=== PATIENT | male | born 1970 | race Caucasian/White ===

== ENCOUNTER → 2021-07-25 14:46 | Outpatient (BNVA) | payer OTHER, SELFPAY | PROVIDERS: Visit Provider Orthopaedic Surgery | DX: S32.039A Unspecified fracture of third lumbar vertebra, initial encounter for closed fracture (principal); X58.XXXA Exposure to other specified factors, initial encounter | CPT/HCPCS: 72100 ==

== ENCOUNTER 2021-07-25 16:07 | Outpatient (CLI) | payer OTHER, SELFPAY | END 2021-07-25 16:08 | disposition home or self-care (01) | LOC: SPT 16:08 | PROVIDERS: Visit Provider Orthopaedic Surgery | DX: Z46.89 Encounter for fitting and adjustment of other specified devices (principal); S34.103D Unspecified injury to L3 level of lumbar spinal cord, subsequent encounter; X58.XXXD Exposure to other specified factors, subsequent encounter | CPT/HCPCS: 97760; L0456 ==

== ENCOUNTER → 2021-08-10 14:28 | Outpatient (BNVA) | payer OTHER, SELFPAY | PROVIDERS: Visit Provider Orthopaedic Surgery | DX: S32.039D Unspecified fracture of third lumbar vertebra, subsequent encounter for fracture with routine healing (principal); X58.XXXD Exposure to other specified factors, subsequent encounter | CPT/HCPCS: 72100 ==

== ENCOUNTER → 2021-08-29 15:25 | Outpatient (BNVA) | payer OTHER, SELFPAY | PROVIDERS: Visit Provider Orthopaedic Surgery | DX: S32.039D Unspecified fracture of third lumbar vertebra, subsequent encounter for fracture with routine healing (principal); X58.XXXD Exposure to other specified factors, subsequent encounter | CPT/HCPCS: 72100 ==

== ENCOUNTER → 2021-10-12 14:06 | Outpatient (BNVA) | payer OTHER, SELFPAY | PROVIDERS: Visit Provider Orthopaedic Surgery | DX: S32.030A Wedge compression fracture of third lumbar vertebra, initial encounter for closed fracture (principal); X58.XXXA Exposure to other specified factors, initial encounter | CPT/HCPCS: 72100 ==

== ENCOUNTER 2022-06-11 09:13 | Emergency (ER) | payer OTHER, SELFPAY ==
[2022-06-11 09:21] VITALS: BP 158/114; PULSE 117; RESP 17; TEMP 37.2; O2SAT 92; BMI 35.2
--- NOTE | 2022-06-11 09:29 | XR_ITS ---
WS: [id number] Exam: XR chest 1V portable [id number] Date/Time of Exam: 06/11/2022 9:37 AM Reason For Exam: COVID +, cough No previous exams. There is plaque atelectasis in the left base. The lungs are fully expanded and otherwise clear. There is accentuation of the cardiomediastinal silhouette secondary to a portable technique. No pleural ef fusions. Regional bony elements are intact. XR/XR chest 1V portable [id number] IMPRESSION: 1. Left basal plaque atelectasis. No acute process noted.
--- NOTE | 2022-06-11 09:29 | ED_ITS ---
HPI - COVID General: Chief Complaint: COVID symptoms Stated Complaint: Covid+/tested last night at home Time Seen by Provider: 06/11/22 09:29 Source: patient Mode of arrival: ambulatory Limitations: no limitations Triage information: Has fever, cough or shortness of breath . No known COVID + exposure last 14 days History of Present Illness: Patient is a 51-year-old male who presents to ED today stating he tested positive for COVID via home antigen yesterday. He states yesterday morning he began having congestion, cough, body aches, low- grade fevers, and diarrhea. He states today he is no longer having diarrhea or fevers. He reports cough is productive and is worried about possible pneumonia. Patient has no known medical history apart from GERD in which she treats with Nexium. MD complaint: known COVID positive Prior covid testing: yes, results known COVID 19 common symptoms: positive fever(s) (resolved), chills, productive cough, body aches, throat pain, nasal congestion and diarrhea (yesterday; none today); negative dyspnea, headache(s), nausea or vomiting COVID 19 other sytmptoms: negative chest pain or dizziness Onset (ago): day(s) (yesterday) Severity: mild Pertinent comorbid conditions: obesity COVID Results: No Data to Display Review of Systems Const: Reports: fever(s) (resolved), chills and body aches ENMT: Reports: throat pain, nasal discharge, nasal congestion and sinus pain Card: Denies: chest pain, palpitations, irregular heart rhythm, edema, swelling of feet/ankles, lightheadedness, syncope or pre-syncope Resp: Reports: productive cough and chest congestion; Denies: dyspnea or wheezing GI: Reports: diarrhea (yesterday; none today); Denies: abdominal pain, nausea or vomiting Musc: Reports: other (generalized body aches); Denies: neck pain or back pain Skin/Breast: Denies: rash Neuro: Denies: headache(s) or dizziness PFS ED PFSH: Social History Smoking and tobacco status: never smoked Second hand smoke exposure: No Smoking risk assessment/counseling performed?: No Alcohol intake: current Alcohol intake frequency: holidays/special occasions only Desire information about alcohol rehabilitation?: No Counseling given: No Desire information about substance/drug rehabilitation?: No Counseling given: No Adopted: No Caregiver/support person: Yes Lives independently: No Household members: spouse Housing: House Marital status: Number of children: 2 Number of grandchildren: 0 Highest education level completed: Bachelor's Degree service: No Current occupational status: employed Current occupation: [employer] Current occupational exposures/hazards: No Pets and animals: Yes History of recent travel: Yes Current gender identity: Male Special franny needs: No Agree to transfusion: Yes Physical Exam Const: COMMON NORMALS: no acute distress, patient oriented x3, no limitations and alert GENERAL APPEARANCE: cooperative NUTRITIONAL APPEARANCE: overweight ORIENTATION/CONSCIOUSNESS: Yes awake, Yes oriented to person, Yes oriented to place and Yes oriented to time HENMT: COMMON NORMALS: normocephalic and atraumatic HEAD & SCALP: normal to inspection, normocephalic and atraumatic Eye: GENERAL EYE: appearance normal, both eyes and all related structures Resp: COMMON NORMALS: normal respiratory effort and clear to auscultation bilaterally AUSCULTATION: clear to auscultation bilaterally Cardio: COMMON NORMALS: regular rhythm RATE: tachycardic RHYTHM: regular rhythm Extremity: COMMON NORMALS: no calf tenderness and no pedal edema Neuro: SHIMON COMA SCALE: document GCS findings Shimon coma scale eye opening: Spontaneous Shimon coma scale verbal response: Orientated [place] coma scale motor response: Obey commands [place] coma scale total score: 15 COMMON NORMALS: patient oriented x3, moves all extremities, no focal motor deficits and no sensory deficits noted SENSORIUM/ORIENTATION: Yes alert, Yes oriented to person, Yes oriented to place and Yes oriented to time Skin: COMMON NORMALS: no rashes or lesions noted GENERAL SKIN EXAM: no rashes or lesions noted Course Vital Signs: Vital signs: Vital Signs Temperature 99.0 F 06/11/22 09:21 Pulse Rate 117 H 06/11/22 09:21 Respiratory Rate 17 06/11/22 09:21 Blood Pressure 158/114 06/11/22 09:21 Pulse Oximetry 92 06/11/22 09:21 Oxygen Delivery Me thod 06/11/22 09:21 MDM - COVID Medical Decision Making Patient clinically appears in no acute distress. He is COVID positive via home antigen testing. Vitals note low-grade fever of 99.0, mild tachycardia, and O2 sat of 92% on RA. CXR is normal. I think patient would benefit from being placed on Paxlovid. Recommend close observation of symptoms at home including finger pulse ox monitoring. Return to ED precautions given. Lab Data Radiology Impressions Chest X-Ray 06/11/22 09:29 IMPRESSION: 1. Left basal plaque atelectasis. No acute process noted. No Data to Display Discharge Plan Discharge Patient Disposition: Home Clinical Impression: COVID-19 Condition: Stable Prescriptions: New Paxlovid (EUA) 300 mg (150 mg x 2)-100 mg tablets,dose pack See Rx Instructions .ROUTE .COMPLEX Qty: 30 0RF Rx Instructions: take TWO 150 mg tablets of nirmatrelvir with ONE 100 mg tablet of ritonavir twice daily for 5 days No Action esomeprazole magnesium [Nexium] 20 mg capsule,delayed release(DR/EC) 20 mg PO DAILY cyclobenzaprine 10 mg tablet 10 mg PO TID (DME) TLSO Back Brace See Rx Instructions .Route .MEDSUPPLY Qty: 1 0RF Rx Instructions: As directed Discharge Orders: Discharge ED (Routine); Ordered 06/11/22 Ordered By: Irma Rahman Referrals: Andrew Powell MD [Primary Care Provider] - Patient Instructions: COVID-19 (Coronavirus Disease 2019) (ED) Activity Restrictions/Additional Instructions: Fill your medication and begin immediately. You need to return to the emergency department for significant shortness of breath or difficulty breathing, severe chest pain, uncontrollable fevers, generally feeling worse or unwell, or any other concerns you may have. I hope you begin to feel better soon. Coding Level of Care Code ED Phlebotomy Technologist for Johnny Fwd Exam Comprehensive
[2022-06-11 10:00] VITALS: O2SAT 93
== END 2022-06-11 10:35 | disposition home or self-care (01) ==
PROVIDERS: Emergency Provider Physician Assistant; PCP Family Medicine
DX: U07.1 COVID-19 (principal)
CPT/HCPCS: 71045; 99283

== ENCOUNTER 2024-01-07 14:42 | Outpatient (CLI) | payer OTHER, SELFPAY | END 2024-01-07 14:43 | disposition home or self-care (01) | LOC: SLEEP 14:43 | PROVIDERS: PCP Clinical Nurse Specialist Adult Health; Visit Provider Clinical Nurse Specialist Adult Health | DX: G47.33 Obstructive sleep apnea (adult) (pediatric) (principal); R06.83 Snoring; G47.19 Other hypersomnia | CPT/HCPCS: G0399 ==

== ENCOUNTER 2025-06-20 19:58 | Outpatient (CLI) | payer OTHER, SELFPAY | END 2025-06-20 19:59 | disposition home or self-care (01) | LOC: SLEEP 20:00 | PROVIDERS: PCP Clinical Nurse Specialist Adult Health; Referring Provider Clinical Nurse Specialist Adult Health; Visit Provider Internal Medicine Pulmonary Disease | DX: G47.33 Obstructive sleep apnea (adult) (pediatric) (principal); G47.34 Idiopathic sleep related nonobstructive alveolar hypoventilation | CPT/HCPCS: 95811 ==